=== PATIENT | male | born 1950 | race Caucasian/White ===

== ENCOUNTER 2023-11-10 06:00 | Day surgery (SDC) | payer OTHER, MEDICARE ==
[2023-11-05 09:01] VITALS: BP 126/68
[~2023-11-10] VITALS: Ht 177.8 cm; Wt 96.0 kg
[2023-11-10] VITALS (8 sets, daily range): BP systolic 117–176; BP diastolic 67–95
[~2023-11-10 06:00] MED LIST: ALEVE220 M1 PO; ASPIRIN EC81 MG PO; ATENOLOL25 MG PO; CIALIS5 MG PO; GALZIN25 MG PO; HYDROCODON-ACE1 EA10 PO; LACTATED RINGER'S 1,000 ML IV SCH; LIPITOR40 MG PO; LISINOPRIL-HCT1 EAC1 PO; LISINOPRIL-HCT1 EAC2 PO; LISINOPRIL-HCT1 EACH PO; MAPAP325 MG PO; NEURONTIN300 MG PO; PERCOCET 7.5-31 EACH PO; TAMSULOSIN HCL0.4 MG PO; TRAZODONE HCL50 MG NG; VENLAFAXINE HCL75 MG PO; VITAMIN C500 M1 PO; VITAMIN D250 MCG PO
[2023-11-10] MEDS ORDERED: CEFAZOLIN SODIUM 2 GM/20 ML SYR IV SCH (07:00)
[2023-11-10] MEDS ORDERED: LIDOCAINE HCL 1% 5 ML SDV INJ ONE (07:00)
[2023-11-10] MEDS ORDERED: IBLOOD GLUCOSE TEST STRIP 1 EA TEST VI PRN ×2 (07:00→08:15)
[2023-11-10] MEDS ORDERED: ACETAMINOPHEN 1,000 MG/100 ML VIAL ONE (07:18)
[2023-11-10] MEDS ORDERED: propofoL 200 MG/20 ML VIAL ONE (07:18)
[2023-11-10] MEDS ORDERED: LIDOCAINE HCL 2% 5 ML SDV ONE (07:18)
[2023-11-10] MEDS ORDERED: fentaNYL citrate 100 MCG/2 ML VIAL ONE ×3 (07:18→08:44)
[2023-11-10] MEDS ORDERED: ondansetron HCL 4 MG/2 ML VIAL ONE (07:18)
[2023-11-10] MEDS ORDERED: diphenhydrAMINE HCL 25 MG CAP PO PRN (07:45)
[2023-11-10] MEDS ORDERED: LACTATED RINGER'S 1,000 ML IV SCH (07:45)
[2023-11-10] MEDS ORDERED: OXYCODONE/APAP 5/325 TAB PO PRN (07:45)
[2023-11-10] MEDS ORDERED: ondansetron HCL 4 MG/2 ML VIAL IV PRN ×2 (07:45→08:15)
[2023-11-10] MEDS ORDERED: MORPHINE SULFATE 4 MG/ML VIAL IV PRN (07:45)
[2023-11-10] MEDS ORDERED: ePHEDrine sulfate 50 MG/ML AMP ONE (08:00)
[2023-11-10] MEDS ORDERED: TRAZODONE HCL 50 MG TAB PO PRN (08:00)
[2023-11-10] MEDS ORDERED: MEPERIDINE HCL 25 MG/1 ML VIAL IV PRN (08:15)
[2023-11-10] MEDS ORDERED: PROCHLORPERAZINE EDISYLATE 10 MG/2 ML VIAL IV PRN (08:15)
[2023-11-10] MEDS ORDERED: fentaNYL citrate 50 MCG/ML SDV IV PRN (08:15)
[2023-11-10] MEDS ORDERED: droPERidol 5 MG/2 ML VIAL IV PRN (08:15)
[2023-11-10] MEDS ORDERED: NALOXONE HCL 0.4 MG SYR IV PRN (08:15)
[2023-11-10] MEDS ORDERED: LACTATED RINGER'S 1,000 ML IV ONE (08:44)
[2023-11-10] MEDS ORDERED: TRANEXAMIC ACID 1,000 MG/10 ML AMP ONE (10:25)
--- NOTE | 2023-11-10 11:11 | NUR ---
11/10/23 Irene Aguirre 1055- PT ARRIVES TO PACU REACTIVE TO VOICE. PT FALLS BACK TO SLEEP WHEN NOT BEING STIMULATED. RESP EVEN AND UNLABORED. OXYGEN SAT HIGH 90'S TO 100% ON 6L VIA MASK. 1057- PT TRYING TO SIT UP IN BED. PT STATES, "I HAVE TO TAKE A LEAK". EXPLAINED TO PT THAT HE HAS A CATHETER IN HIS BLADDER THAT IS DRAINING HIS URINE. URINE IS LIGHT PINK IN COLOR, NO CLOTS NOTED. 1059- CBI DECREASED URINE IS CLEAR. 1106- PT SITTING UP IN BED. PT WANTS TO SIT UP HIGHER. HEAD OF BED ELEVATED TO PT COMFORT. OXYGEN TITRATED OFF. 1109- CBI TURNED UP URINE IS TURNING LIGHT RED. PT REPORTS FREQUENTLY THAT HE HAS TO URINATE. PT UPDATED THAT HE HAS A CATHETER IN HIS BLADDER. URINE IS DRAINING LIGHT RED, NO CLOTS NOTED.
--- NOTE | 2023-11-10 11:35 | NUR ---
PT ARRIVES TO [facility] VIA BED SIG OTHER IS PRESENT. PT IS ALERT AND ANSWERS APPROPRIATELY. C/O SENSATION OF NEEDING TO VOID. EDUCATION PROVIDED ORIENTED TO ROOM, BED CONTROLS, AND CALL SYSTEM.
--- NOTE | 2023-11-10 12:00 | NUR ---
PT RESTS EYES CLOSED INTERMITTANTLY SIG OTHER REMAINS IN THE ROOM. FERREIRA DRAINING LIGHT PINK. PT CONTINUES TO C/O FEELING NEED TO VOID. PT SHIFTS IN BED A BIT, MOVING HIS BUTT BACK SITTING UP THEN RECLINING FARTHER. CATH CONTUINUES TO DRAIN RUNS DARKER RED FOR A SHORT TIME THEN RETURNS TO LIGHT PINK. SCD'S IN PLACE FRESH H20 AT BEDSIDE PT DENIES NEEDS OR RELIEFT FROM POSITION CHANGE
--- NOTE | 2023-11-10 12:03 | NUR ---
PT DOZING AT THIS TIME SATS ARE 98% PT LEFT ON 1 L NC DUE TO HX OF APNEA.
--- NOTE | 2023-11-10 12:22 | NUR ---
PT CONTINUES TO FEEL VERY UNCOMFORTABLE WITH THE SENSATION HE NEEDS TO VOID "I CAN'T STAND IT" ENSURED FERREIRA IS FLOWING FREELY THEN ADMINISTERED 2 MG MORPHINE. LIGHTS OFF SHADES PARTIALLY PULLED PT ENCOURAGED TO DOZE FOR A BIT. CALL LIGHT IN REACH
[2023-11-10] MEDS ORDERED: oxyBUTYnin chloride 5 MG TAB PO SCH (13:40)
--- NOTE | 2023-11-10 13:49 | NUR ---
PT CONTINUES TO BE UNCOMFORTABLE WITH SENSATION OF NEEDING TO VOID. CONTACTED DR GILBERT WHO ORDERS OXYBUTININ. SATS CONTINUE TO BE 99 AND 100% 02 DC'D PULSE OX IS IN PLACE.
--- NOTE | 2023-11-10 14:05 | NUR ---
MED REC COMPLETE
--- NOTE | 2023-11-10 14:41 | NUR ---
PT AGREES OXYBUTININ HAS HELPED "SOMEWHAT" HE APPEARS LESS RESTLESS. CONTINUES RESTING IN BED EYES CLOSED INTERMITTANTLY. BP IS ELEVATED AT THIS TIME WILL RECHECK SHORTLY
--- NOTE | 2023-11-10 15:30 | NUR ---
RECHECKING BP IT HAS COME DOWN SOMEWHAT. PT AGREES HE TOOK HIS HTN MEDS THIS MORNING PRIOR TO PROCEEDURE. SUSPECT DISCOMFORT CAUSED ELEVATION WILL CONTINUE TO MONITOR
--- NOTE | 2023-11-10 16:56 | NUR ---
PT AGREES IT'S A GOOD IDEA TO GET A PAIN PILL ON BOARD. HE STILL HAS THE URGE TO VOID BUT STATES IT'S TOLERABLE AT THIS TIME. EVENING MEAL SERVED PT REFUSES. DIFFERENT ITEMS OFFERED PT STATES HE JUST DOESN'T WANT ANYTHING TO EAT. AGREES TO PUDDING PRIOR TO PAIN MED TO PREVENT STOMACH UPSET. DENIES NEEDS OF ANYTHING AT THIS TIME
--- NOTE | 2023-11-10 17:51 | NUR ---
pt resting comfortably now. awakens to voice returns to dozing. sats 91% on ra
--- NOTE | 2023-11-10 18:53 | NUR ---
PT RESTING SOUNDLY AT THIS TIME
--- NOTE | 2023-11-10 18:59 | NUR ---
Report obtained from Purvi RN, Dr Daigle in room
--- NOTE | 2023-11-10 19:08 | NUR ---
Pt awake, hob elevated, denies c/o pain. CBI infusing slowly, f/c patent draining light cranberry colored urine. IVF infusing
--- NOTE | 2023-11-10 20:29 | NUR ---
awakes easily, IVF infusing RAC, CBI , f/c draining light cranberry colored urine. scds in place. no c/o pain, alert and oriented, post op CPOX in place. Was 88% on room air, after CDB went up to 92%, then back to 88%, pt has LAECIA. denies CPAP usage at home. placed on 1LNC and has stayed at 93%. no sob with exertion, helped repositioning. toleratin liquids well
[2023-11-10] MEDS ORDERED: GABAPENTIN 300 MG CAP PO SCH (21:00)
--- NOTE | 2023-11-10 21:27 | NUR ---
Sitting up in bed, hob elevated, CBI infusing w/o problems, f/c patent, draining light cranberry colored urine. c/o 5/10 penile/bladder area pain, medicated with 1 Percocet. tolerating liquids well, no c/o n/v, pleasant and cooperative
--- NOTE | 2023-11-10 22:23 | NUR ---
IV PUMP ALARMING. ISSUE RESOLVED. PT REPORTS ABD "MUSCLE SORENESS" RELATED TO "HOLDING MY HEAD UP." ASSISTED TO REPOSITION BED TO CHAIR POSITION. EXTRA PILLOWS PROVIDED FOR HEAD SUPPORT. BED ALARM FOR SAFETY. NO FURTHER NEEDS. CALL LIGHT IN REACH.
--- NOTE | 2023-11-10 22:49 | NUR ---
CI stopped, f/c urine noted to be light pinkish.
[2023-11-11 00:46] VITALS: BP 162/80
--- NOTE | 2023-11-11 01:00 | NUR ---
Awake, a couple blood clots noted in F/C tubing draining cranberry colored urine. CBI opened for a few minutes then clamped again. light pink drainage. IVF infusing. no c/o pain, awake, cooperative with second assessment and vitals
[2023-11-11] MEDS ORDERED: lisinopriL 20 MG TAB PO SCH ×2 (02:00→06:00)
[2023-11-11] MEDS ORDERED: hydroCHLOROthiazide 25 MG TAB PO SCH ×2 (02:00→06:00)
--- NOTE | 2023-11-11 04:31 | NUR ---
RESTING, EYES CLOSED, ON 1LNC, SATS 90%, POST OP CPOX ON AT BEDSIDE. IVF INFUSING RAC. F/C DRAINING LIGHT PINK ALTERNATING WITH LIGHT CRANBERRY COLORED URINE. NO CLOTS. CBI STOPPED EARLIER. WAS MEDICATED X1 WITH PERCOCET PER BLADDER AREA PAIN, EFFECTIVE, TOLERATING LIQUIDS WELL, NO C/O N/V. REPOSITIONS SELF IN BED
[2023-11-11 06:01] VITALS: BP 140/73
--- NOTE | 2023-11-11 06:20 | NUR ---
Pt awakens easily, cooperative with vitals. IVF infusing, several small long blood clots noted in f/c tubing, draining very light cranberry colored urine. CBI opened again. stopped and urine is draining light pink urine. denies bladder spasms. c/o pain. medicated with 1 Percocet. tolerating liquids. post home dc care explained, stated understanding, alert and oriented
[2023-11-11] MEDS ORDERED: LEVOFLOXACIN500 MG PO (07:26)
[2023-11-11] MEDS ORDERED: OXYCODONE HCL5 MG PO (07:27)
--- NOTE | 2023-11-11 08:16 | NUR ---
PT SITTNIG UP IN BED. FERREIRA EMPTIED FOR 1450. PT EDUCATED ON MEDS AND GOING HOME WITH CATHETER. DENIES QUESTIONS.
[2023-11-11 08:55] VITALS: BP 135/79
--- NOTE | 2023-11-11 08:55 | NUR ---
CARES BEING COMPLETED BY NURSING STAFF. WILL ATTEMPT ASSESSMENT AT LATER TIME.
[2023-11-11] MEDS ORDERED: CEFTRIAXONE/SODIUM CHLORIDE 2 GM/100 ML PIGGYBACK IV SCH (09:00)
--- NOTE | 2023-11-11 09:36 | NUR ---
ASSISTED PT TO GET DRESSED, EDUCATED ON FERREIRA. IV REMOVED BY STUDENT RN CESAR COE. FERREIRA PLUGGED AFTER CBI REMOVED.
--- NOTE | 2023-11-14 09:08 | PATH ---
[facility] [address] [facility] [address] [facility] [place], [place] [address] Signed SPECIMEN(S): A PROSTATE CHIPS SPECIMEN SOURCE: A. PROSTATE CHIPS CLINICAL HISTORY: BPH with LUTS, obstructive and reflux uropathy, elevated PSA, nodular prostate, suspected UTI FINAL PATHOLOGIC DIAGNOSIS: Prostate chips, TUR: - Benign prostatic glandular and stromal hyperplasia. - Chronic stromal and glandular inflammation. - Urothelium with reactive features. JVR:clv MICROSCOPIC EXAMINATION: Histologic sections of all submitted blocks are examined by light microscopy. These findings, together with the gross examination, support the pathologic diagnosis. GROSS DESCRIPTION: The specimen, labeled and designated "Tracy, " and designated on the requisition "prostate chips," is received in formalin and consists of multiple fragments of pink-messina soft and rubbery tissue (63 g, 11.0 x 9.5 x 4.5 cm in aggregate). [employer]ished [employer] Planner sections are submitted cassette [id number]. AC (under the direct supervision of a pathologist) The Gross Description was prepared using a voice recognition system. The report was reviewed for accuracy; however, sound-alike word errors, addition and/or deletions may occur. If there is any question about this report, please contact Client Services. PERFORMING LABORATORY: Technical component was performed by [facility], [address] [place] [id number] (CLIA# [id number]). Professional interpretation was performed by [facility], [address] [place] [id number] (CLIA#: [id number]). Diagnostician: Ovi Couch MD Pathologist PATIENT NAME: GERONIMO COVARRUBIAS PATHOLOGY DATE OF : 46 REPORT #: [id number] PHYSICIAN: [facility] PCP: FERNY NEGRO MD REPORT IS CONFIDENTIAL AND NOT TO BE RELEASED WITHOUT AUTHORIZATION [address] [address] Signed Electronically Signed 11/13/2023 Copies: ~ PATIENT NAME: GERONIMO COVARRUBIAS PATHOLOGY DATE OF : 46 REPORT #: [id number] PHYSICIAN: [facility] PCP: FERNY NEGRO MD REPORT IS CONFIDENTIAL AND NOT TO BE RELEASED WITHOUT AUTHORIZATION
== END 2023-11-11 10:50 | disposition home or self-care (01) ==
LOC: DS 06:00 → MS 11:40 → DS 11-11 10:50
PROVIDERS: ATTEND Urology
PROC: 0VT08ZZ Resection of Prostate, Via Natural or Artificial Opening Endoscopic (ICD-10-PCS; principal; 2023-11-10 07:30)
DX: N40.1 Benign prostatic hyperplasia with lower urinary tract symptoms (principal); N13.8 Other obstructive and reflux uropathy; N41.1 Chronic prostatitis; N32.89 Other specified disorders of bladder; I10 Essential (primary) hypertension; E78.00 Pure hypercholesterolemia, unspecified; Z79.899 Other long term (current) drug therapy; Z87.891 Personal history of nicotine dependence
CPT/HCPCS: 00914; A9270; C1769; J0131; J0690; J0696; J2001; J2405; J2704; J3010; J7121